=== PATIENT | male | born 1980 | race Caucasian/White ===

== ENCOUNTER 2018-02-21 10:44 | Emergency (ER) | payer SELFPAY ==
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
[2018-02-21 12:21] VITALS: BP 134/98
== END 2018-02-21 12:18 | disposition home or self-care (01) ==
LOC: ED 10:44
DX: S16.1XXA Strain of muscle, fascia and tendon at neck level, initial encounter (principal); S09.90XA Unspecified injury of head, initial encounter; I10 Essential (primary) hypertension; V89.2XXA Person injured in unspecified motor-vehicle accident, traffic, initial encounter; Y92.9 Unspecified place or not applicable
CPT/HCPCS: 70450; 72125; 99282

== ENCOUNTER 2018-03-02 19:36 | Emergency (ER) | payer OTHER ==
[2018-03-02] MEDS ORDERED: Ketorolac INJ* 30 MG/ML 1 ML VIAL IV PUSH ONE (20:15)
[2018-03-02] MEDS ORDERED: NS 0.9% 1000 ML* 1,000 ML IV ONE (20:15)
[2018-03-02] MEDS ORDERED: diPHENhydraMINE IV* 50 MG/ML 1 ml VIAL (BENADRYL) IV ONE (20:15)
[2018-03-02] MEDS ORDERED: Promethazine INJ(RESTRICTED)* 25 MG/ML 1 ML VIAL IV ONE (20:17)
[2018-03-02] MEDS ORDERED: PROCHLORPERAZINE INJ 5 MG/ML 2 ML VIAL IV ONE (21:00)
[2018-03-02 21:40] VITALS: BP 129/80
--- NOTE | 2018-03-02 22:08 | ED ---
Chau Bacon Jennifer, scribed for Estuardo Coronado MD on 03/02/18 at 2025 . Headache - HPI Summary HPI Summary: The patient is a 37 year old male who presents with migraine since 12:30 today. He reports the pain is located behind his right eye and through the back of his head and down the right side of his face. He adds that the pain is beginning to spread to the left side of his face. He reports the pain begin to worsen at 15: 45. Pt complains of visual changes and photophobia. He denies vomiting, cold symptoms, and any other pain. Pt has a history of migraines and states this is similar to previous episodes. - History Of Current Complaint Chief Complaint: EDHeadache Stated Complaint: MIGRAINE Time Seen by Provider: 03/02/18 19:54 Hx Obtained From: Patient Onset/Duration: Sudden Onset, Started hours ago - 8 hours, Still Present, Worse Since - 15:45 Initially Headache Was: Moderate Currently Pain Is: Moderate Timing: Constant Character: Pressure Location of Headache: Other: - Behind right eye through back of head and down the right side of the face, beginning to spread to the left face Aggravating Factor: Bright Lights Allevating Factors: Nothing - Allergies/Home Medications Allergies/Adverse Reactions: Allergies Allergy/AdvReac Type Severity Reaction Status Date / Time sumatriptan [From Imitrex] Allergy Palpitation Verified 03/02/18 19:50 s PMH/Surg Hx/FS Hx/Imm Hx Endocrine/Hematology History: Denies: Hx Anticoagulant Therapy, Hx Diabetes, Hx Thyroid Disease Cardiovascular History: Reports: Hx Hypertension Denies: Hx Pacemaker/ICD Respiratory History: Denies: Hx Asthma, Hx Chronic Obstructive Pulmonary Disease (COPD) History: Denies: Hx Renal Disease Neurological History: Reports: Hx Migraine Denies: Hx Dementia, Hx Seizures Psychiatric History: Denies: Hx Substance Abuse - Cancer History Cancer Type, Location and Year: N - Surgical History Surgery Procedure, Year, and Place: APPENDECTOMY 2007 Infectious Disease History: No Infectious Disease History: Denies: Hx Hepatitis, Hx Human Immunodeficiency Virus (HIV), Traveled Outside the [place] in Last 30 Days - Family History Known Family History: Negative: Hypertension, Diabetes - Social History Alcohol Use: None Substance Use Type: Reports: None Smoking Status (MU): Never Smoked Tobacco Review of Systems Negative: Fever Positive: Photophobia. Negative: Blurred Vision, Diplopia ENT: Negative Negative: Nasal Discharge Negative: Palpitations Positive: Vomiting, Nausea. Negative: Abdominal Pain Positive: Headache. Negative: Weakness, Paresthesia, Numbness, Slurred Speech All Other Systems Reviewed And Are Negative: Yes Physical Exam - Summary Physical Exam Summary: Appearance: Well appearing, no pain distress Skin: warm, dry, reflects adequate perfusion Head/face: normal, temporal arteries nontender, lobes are soft Eyes: EOMI, CHRISTIANE ENT: normal Neck: supple, non-tender Respiratory: CTA, breath sounds present Cardiovascular: RRR, pulses symmetrical Abdomen: non-tender, soft Bowel Sounds: present Musculoskeletal: normal, strength/ROM intact Neuro: normal, sensory motor intact, cranial nerves intact, A&Ox3 Triage Information Reviewed: Yes Vital Signs On Initial Exam: Initial Vitals Temp Pulse Resp BP Pulse Ox 98.2 F 88 16 146/88 99 03/02/18 19:48 03/02/18 19:48 03/02/18 19:48 03/02/18 19:48 03/02/18 19:48 Vital Signs Reviewed: Yes Diagnostics - Vital Signs Vital Signs Temp Pulse Resp BP Pulse Ox 03/02/18 19:48 98.2 F 88 16 146/88 99 - Laboratory Lab Statement: Any lab studies that have been ordered have been reviewed, and results considered in the medical decision making process. Re-Evaluation - Re-Evaluation First Eval Re-Evaluation Time: 21:06 Change: Improved Comment: Pt reports his nausea is gone and his head is improving but not completely gone. Second Eval Re-Evaluation Time: 21:27 Change: Improved Comment: Pt reports his headache is now gone. Headache Course/Dx - Course Course Of Treatment: Patient with history of frequent, recurring migraines who presents with similar symptoms. Gradual onset and no high risk features. Treated here with promethazine, Toradol, Benadryl and IV hydration with resolution. Will have him follow-up with his neurologist. - Diagnoses Differential Diagnosis/HQI/PQRI: Migraine, Sinus Headache, Temporal Arteritis, Tension Headache Provider Diagnoses: Migraine aura, persistent, intractable Discharge - Sign-Out/Discharge Documenting (check all that apply): Discharge/Admit/Transfer - Discharge Plan Condition: Improved Disposition: HOME Patient Education Materials: Migraine Headache (ED) Forms: *Work Release Referrals: Naty Mandujano MD [Medical Doctor] - Gemma Magdaleno MD [Primary Care Provider] - Additional Instructions: Stay well hydrated. Call in the morning to speak with your doctor/neurologist about other options to help control your headaches. Return if worse, fevers, repetitive vomiting, new symptoms or other concerns. Stay well-hydrated, caffeine may help. Avoid regular use of ibuprofen. - Billing Disposition and Condition Condition: IMPROVED Disposition: HOME The documentation as recorded by the Chau blas Jennifer accurately reflects the service I personally performed and the decisions made by me, Estuardo Coronado MD.
== END 2018-03-02 21:39 | disposition home or self-care (01) ==
LOC: ED 19:36
DX: G43.519 Persistent migraine aura without cerebral infarction, intractable, without status migrainosus (principal); I10 Essential (primary) hypertension; Z88.8 Allergy status to other drugs, medicaments and biological substances
CPT/HCPCS: 96374; 96375; 99282; J0780; J1200; J1885; J2550

== ENCOUNTER 2018-04-23 08:28 | Emergency (ER) | payer OTHER ==
[2018-04-23] MEDS ORDERED: EPINEPHrine AMP 1 MG/ML IM ONE (08:58)
[2018-04-23] MEDS ORDERED: methylPREDNISolone 125 MG* 2 ML VIAL IV ONE (08:58)
[2018-04-23] MEDS ORDERED: NS 0.9% 1000 ML* 1,000 ML IV ONE (08:58)
[2018-04-23] MEDS ORDERED: Famotidine IV* 10 MG/ML 2 ML (20 mg) IV SLOW PU ONE (08:59)
[2018-04-23] MEDS ORDERED: diPHENhydraMINE IV* 50 MG/ML 1 ml VIAL (BENADRYL) IV ONE (08:59)
--- NOTE | 2018-04-23 09:06 | ED ---
Allergic Reaction/Systemic - HPI Summary HPI Summary: Patient presents with reaction to Zomig which she took a little after 7:30 this morning. He reports he initially developed some throat tightness which spread into chest tightness arm heaviness and a little bit of nausea. He's had a history of allergic reaction to Imitrex in the past which resulted in slowed breathing. He has not tried anything prior to arrival. He denies history of anaphylaxis as well as asthma or sensitive skin. He does have a history of migraines and is followed with Dr. Mandujano. He reports he gets 8-10 of these a month which is why he is on preventative medication as well as rescue meds. He also admits to history of depression. Was recently switched from nortriptyline to another medication (possibly Effexor). - History of Current Complaint Chief Complaint: EDAllergicReaction Time Seen by Provider: 04/23/18 08:46 Hx Obtained From: Patient Pain Intensity: 7 - Allergies/Home Medications Allergies/Adverse Reactions: Allergies Allergy/AdvReac Type Severity Reaction Status Date / Time sumatriptan [From Imitrex] Allergy Palpitation Verified 03/16/18 15:17 s Home Medications: Home Medications Butalb/Acetamin/Caff TAB* [Fioricet TAB*] 1 tab PO Q6H PRN 04/23/18 [History Confirmed 04/23/18] HYDROcodone/ACETAMIN 5-325 MG* [[place] 5-325 TAB*] 1 tab PO Q6H PRN 04/23/18 [ History Confirmed 04/23/18] Multivitamins/Minerals TAB* [Theragran/minerals TAB*] 1 tab PO DAILY 04/23/18 [ History Confirmed 04/23/18] Nortriptyline CAP* [Pamelor CAP*] 50 mg PO BEDTIME 04/23/18 [History Confirmed 04/23/18] diPHENhydraMINE PO* [Benadryl PO 50 MG CAP*] 50 mg PO BEDTIME 04/23/18 [History Confirmed 04/23/18] PMH/Surg Hx/FS Hx/Imm Hx Previously Healthy: Yes Endocrine/Hematology History: Denies: Hx Anticoagulant Therapy, Hx Diabetes, Hx Thyroid Disease Cardiovascular History: Reports: Hx Hypertension Denies: Hx Aneurysm, Hx Cardiac Arrest, Hx Congestive Heart Failure, Hx Myocardial Infarction, Hx Pacemaker/ICD Respiratory History: Denies: Hx Asthma, Hx Chronic Obstructive Pulmonary Disease (COPD), Hx Pneumonia, Hx Pulmonary Embolism History: Denies: Hx Renal Disease Sensory History: Denies: Hx Hearing Aid Neurological History: Reports: Hx Migraine - 8-10 per month - follows w/ Dr. 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 Negative: Abdominal Pain, Vomiting, Diarrhea Positive: no symptoms reported Musculoskeletal: Negative Skin: Negative Neurological: Negative Positive: Anxious All Other Systems Reviewed And Are Negative: Yes Physical Exam Triage Information Reviewed: Yes Vital Signs On Initial Exam: Initial Vitals Temp Pulse Resp Pulse Ox 97.1 F 67 16 98 04/23/18 08:39 04/23/18 08:39 04/23/18 08:39 04/23/18 08:39 Vital Signs Reviewed: Yes Appearance: Positive: Well-Appearing - appears concerned, No Pain Distress, Well -Nourished Skin: Positive: Warm, Skin Color Reflects Adequate Perfusion, Dry Head/Face: Positive: Normal Head/Face Inspection Eyes: Positive: Normal, EOMI, Conjunctiva Clear ENT: Positive: Normal ENT inspection, Hearing grossly normal, Pharynx normal - mucosa somewhat dry Neck: Positive: Supple, Tenderness @ - anterior neck is w/ mild TTP Respiratory/Lung Sounds: Positive: Clear to Auscultation, Breath Sounds Present. Negative: Wheezes Cardiovascular: Positive: Normal, RRR Abdomen Description: Positive: Nontender, No Organomegaly, Soft Musculoskeletal: Positive: Normal, Strength/ROM Intact Neurological: Positive: Normal, Sensory/Motor Intact, Alert, Oriented to Person Place, Time, CN Intact II-III Psychiatric: Positive: Anxious Diagnostics - Vital Signs Vital Signs Temp Pulse Resp BP Pulse Ox 04/23/18 08:45 97.1 F 69 18 152/100 95 04/23/18 08:39 97.1 F 67 16 98 - Laboratory Result Diagrams: 04/23/18 09:37 04/23/18 09:03 Lab Statement: Any lab studies that have been ordered have been reviewed, and results considered in the medical decision making process. Re-Evaluation - Re-Evaluation First Eval Change: Improved - throat tightness resolved and chest tightness improving Second Eval Change: Improved - tolerating cold water well Allergic Reaction Course/Dx - Course Course Of Treatment: Pt presents w/ anaphylactic sx s/p taking zomig. He reports throat tightness, chest tightness and arm heaviness. His BP is elevated and he has no skin reaction/sx. His breathing is controlled and pulse ox consistently > 95%. His case was discussed w/ Dr. Coronado as there was debate whether this was an anaphylactic presentation vs. drug reaction w/o anaphylaxis. After checking an ECG (NSR, 67 BPM, no ST elevations, early repol) , we decided to initiated medications for anaphylaxis and pt's sx improved. His BP improved and HR was below 100 (88) at 4 hours s/p epi administration. Pt d/c' d in stable and improved condition. Advised to continue home meds and f/u w/ PCP. Educated about possible biphasic reaction - pt will monitor for danger s/ sx.He will also discuss med change with Dr. Huff as he will no longer be able to take zomig. - Diagnoses Provider Diagnoses: Drug-induced anaphylaxis Discharge - Sign-Out/Discharge Documenting (check all that apply): Discharge/Admit/Transfer - Discharge Plan Condition: Stable Disposition: HOME Prescriptions: EPINEPHrine [Epipen 2-Ruiz] 0.3 mg IM ONCE PRN #1 inj PRN Reason: Allergy Symptoms methylPREDNISolone [Medrol] 4 mg PO DAILY #1 ruiz Patient Education Materials: Anaphylaxis (ED) Forms: *Work Release Referrals: Zeenat Palmer MD [Primary Care Provider] - Additional Instructions: Complete steroid pack as directed You may also take an anti-histamine such as benadryl 50mg every 6 hours for the next 1-2 days Take pepcid 20mg daily for nausea Stay hydrated *If your symptoms return, inject your thigh with the epipen and return to the ED Follow-up with PCP as well as Dr. Mandujano. Zomig has been removed from your med list and added to your allergy list. Please update all of your other care providers. - Billing Disposition and Condition Condition: STABLE Disposition: Home
[2018-04-23 09:38] LABS: EGFR Non-African American 60.9 (>60)
[2018-04-23 09:49] LABS: Hematocrit 46 % (42-52); Hemoglobin 16.1 g/dl (14.0-18.0); Mean Corpuscular HGB Conc 35 g/dl (31-36); Mean Corpuscular Hemoglobin 29 pg (27-31); Mean Corpuscular Volume 84 fL (80-94); Mean Platelet Volume 9.2 um3 (7.4-10.4); Platelet Count 180 10^3/ul (150-450); Red Cell Distribution Width 12 % (10.5-15); White Blood Count 5.8 10^3/ul (3.5-10.8)
[2018-04-23 10:30] LABS: Monocytes % 4 % (0-7)
[2018-04-23 14:05] VITALS: BP 130/84
[2018-04-23 16:15] LABS: ABS Neutrophils 3.3 10^3/ul (1.5-7.7)
== END 2018-04-23 14:04 | disposition home or self-care (01) ==
LOC: ED 08:28
DX: T88.6XXA Anaphylactic reaction due to adverse effect of correct drug or medicament properly administered, initial encounter (principal); T39.8X5A Adverse effect of other nonopioid analgesics and antipyretics, not elsewhere classified, initial encounter; Y84.8 Other medical procedures as the cause of abnormal reaction of the patient, or of later complication, without mention of misadventure at the time of the procedure; R07.9 Chest pain, unspecified; R11.0 Nausea; Z88.8 Allergy status to other drugs, medicaments and biological substances; Z79.899 Other long term (current) drug therapy; I10 Essential (primary) hypertension; G40.909 Epilepsy, unspecified, not intractable, without status epilepticus
CPT/HCPCS: 36415; 80053; 83690; 84484; 85025; 93005; 96365; 96372; 96375; 99283; J0171; J1200; J2930

== ENCOUNTER 2019-12-29 21:40 | Emergency (ER) | payer BC ==
--- OUTSIDE RECORDS SUMMARY | 2019-12-29 21:48 | XMS REPORT | Continuity of Care Document ---
:1980 External Reference #:[id number] Author Name Dara Drummond NAnjum (transmitted by agent of provider Christiane Kumar) Address [address], [address] [place] [id number] Care Team Providers Name Role Phone Dara Drummond NP - Family Care Team Information Digital Learning Platforms Manager [phone] Zeenat Palmer MD - Internal Care Team Information Digital Learning Platforms Manager [phone] Medicine Problems Active Problems Provider Date Essential hypertension Gemma Magdaleno M.D. Onset: 06/30/2012 Migraine without aura, not refractory Naty Mandujano MD Onset: 08/04/2017 Current tear of medial cartilage AND/OR Odalys Quintero M.D. Onset: 03/12/2018 meniscus of knee Knee pain Odalys Quintero M.D. Onset: 03/12/2018 Localized, primary osteoarthritis Odalys Quintero M.D. Onset: 04/02/2018 Migraine Naty Mandujano MD Onset: 04/21/2018 Chronic intractable migraine without aura Aly Tang M.D. Onset: 10/26 Social History Type Date Description Comments Sex Unknown Tobacco Use Start: Unknown Never Smoked Cigarettes Smoking Status Reviewed: 12/13/19 Never Smoked Cigarettes ETOH Use Rarely consumes alcohol Tobacco Use Start: Unknown Patient has never smoked Recreational Drug Use Denies Drug Use Enjoy Exercising Enjoys exercising Exercise Type/Frequency Exercises sporadically Allergies, Adverse Reactions, Alerts Active Allergies Reaction Severity Comments Date Sumatriptan Bradycardia, near 04/22/2017 syncope Zomig Chest pressure throat Severe 04/26/2018 swelling Inactive Allergies NKDA 06/30/2012 Medications Active Medications SIG Qnty Indications Ordering Provider Date Aimovig inject once a 1ml G43.719 Aly Tang, 10/26/2018 70mg/ml month, sq dx M.D. Solution Auto-Inject code: g43.719 Ondansetron 1 up to three 18tabs Dusty Allen, 03/10/2018 4mg times a day as N.P. Tablets Dispers needed for nausea associated with migraine Hydrocodone-Acetamin one tablet by 14tabs Dara Hoda, 06/22/2017 ophen mouth every 6 N.P. 5-325mg Tablets hours as needed for pain Blood Pressure Kit check blood 1units Dara Drummond, 01/14/2016 pressure daily N.P. Kit Butalbital/Acetamino take 1-2 tablets 60tabs G43.109 Dara Drummond, 2013 phen/Caffeine by mouth every 6 N.P. hours if needed 50-325-40mg Tablets maximum daily dose of 6 Mens Multivitamin 1 by mouth every Unknown Plus day Tablets Eye Drops as needed Unknown 0.012-0.2% Solution Immunizations CPT Code Status Date Vaccine Reaction Lot # [id number] Given 11/14/2019 Influenza Virus Vaccine, shot tolerated well, [id number] Quadrivalent, Split, no immediate reaction Preservative Free 94803 Given 01/31/2019 Tetanus And Diptheria No immediate [id number] (Td) For Adult Use reaction... Preservative Free 33784 Given 08/23/2014 Influenza Virus Vaccine, [id number] Quadrivalent, Split, Preservative Free 35911 Given 07/14/2012 Influenza Virus 3Yrs & Over 02181 Given 07/15/2009 Tdap - [id number] Tetanus/Diptheria/Acellul ar Pertussis Vital Signs Date Vital Result Comment 12/13/2019 4:01pm Height 71.5 inches 5'11.50" Weight 218.00 lb Heart Rate 74 /min BP Systolic Sitting 138 mmHg BP Diastolic Sitting 88 mmHg Body Temperature 98.0 F O2 % BldC Oximetry 94 % BMI (Body Mass Index) 30.0 kg/m2 11/14/2019 2:52pm Height 71.5 inches 5'11.50" Weight 205.00 lb Heart Rate 66 /min BP Systolic 118 mmHg BP Diastolic 90 mmHg BMI (Body Mass Index) 28.2 kg/m2 Results Description No Information Available Procedures Description No Information Available Medical Devices Description No Information Available Encounters Type Date Location Provider Dx Diagnosis Office Visit 11/14/2019 [facility] Dusty Allen, G43.909 Migraine, unsp, 3:00p [facility] N.P. not intractable, without status migrainosus Assessments Date Code Description Provider 12/13/2019 M54.5 Low back pain Dara Drummond N.PJean Marie 11/14/2019 Z23 Encounter for immunization Nurse Visit A 11/14/2019 G43.909 Migraine, unspecified, not intractable, Dusty Allen, N.PJean Marie without status migra Plan of Treatment Future Appointment(s):05/14/2020 3:45 pm - Aly Tang M.D. at [facility]02/03/2020 8:40 am - Dara Drummond NAnjum at [facility] - [facility]12/13/2019 - Dara Drummond NAnjumM54.5 Low back painNew Labs:Urinalysis Profile, Ordered: 12/13/19Urine Culture And Sensitivities, Ordered: 12/13/19Comments:To be sure your symptoms are not related to your kidneys or infection I have ordered a urine culture. The office will contact you with your results.You may find applying heat or ice helpful. Taking Acetaminophen may help the discomfort. Functional Status Description No Information Available Mental Status Description No Information Available Referrals Description No Information Available
--- OUTSIDE RECORDS SUMMARY | 2019-12-29 21:48 | XMS REPORT | Continuity of Care Document ---
:1980 External Reference #:[id number] Author Name Dusty Allen N.P. (transmitted by agent of provider Renetta Andres) Address [address], [address] [place] [id number] Care Team Providers Name Role Phone Dara Drummond NP - Family Care Team Information Category Specialist [phone] Zeenat Palmer MD - Internal Care Team Information Category Specialist [phone] Medicine Problems Active Problems Provider Date Essential [...] Unknown Never Smoked Cigarettes Smoking Status Reviewed: 11/14/19 Never Smoked Cigarettes ETOH Use Rarely consumes [...] associated with migraine Hydrocodone-Acetamin one tablet by 28tabs Dara Hoda, 06/22/2017 ophen mouth every 6 N.P. 5-325mg Tablets hours as needed for pain Blood Pressure Kit check blood 1units Dara Hoda, 01/14/2016 pressure daily N.P. Kit Butalbital/Acetamino take 1-2 tablets 60tabs G43.109 Dara Hoda, 2013 phen/Caffeine by mouth every 6 N.P. hours if needed 50-325-40mg Tablets maximum daily dose of 6 Mens Multivitamin 1 by mouth every Unknown Plus day Tablets Eye Drops as needed Unknown 0.012-0.2% Solution History Medications Ambien one by mouth at 14tabs Dara Hoda, N.P. 05/25/2019 - 5mg bedtime as needed 11/13/2019 Tablets for sleep Immunizations CPT Code Status Date Vaccine Reaction Lot # [id number] Given 11/14/2019 Influenza Virus Vaccine, shot tolerated well, [id number] Quadrivalent, Split, no immediate reaction Preservative Free 36711 Given 01/31/2019 Tetanus And Diptheria No immediate A114B (Td) For Adult Use reaction... Preservative Free 83164 Given 08/23/2014 Influenza Virus Vaccine, [id number] Quadrivalent, Split, Preservative Free 83050 Given 07/14/2012 Influenza Virus 3Yrs & Over 60491 Given 07/15/2009 Tdap - [id number] Tetanus/Diptheria/Acellul ar Pertussis Vital Signs Date Vital Result Comment 11/14/2019 2:52pm Height 71.5 inches 5'11.50" Weight 205.00 lb Heart Rate 66 /min BP Systolic 118 mmHg BP Diastolic 90 mmHg BMI (Body Mass Index) 28.2 kg/m2 05/30/2019 3:57pm Height 71.5 inches 5'11.50" Weight 206.00 lb Heart Rate 66 /min BP Systolic 138 mmHg BP Diastolic 98 mmHg BMI (Body Mass Index) 28.3 kg/m2 Results Description No Information Available Procedures Description No Information Available Medical Devices Description No Information Available Encounters Type Date Location Provider Dx Diagnosis Office Visit 05/30/2019 [facility] Aly Tang, G43.719 Chronic migraine 4:00p [facility] MClarence w/o aura, intractable, w/o stat migr Assessments Date Code Description Provider 11/14/2019 G43.909 Migraine, unspecified, not intractable, Dusty Allen N.PJean Marie without status migra 05/30/2019 G43.719 Chronic migraine without aura, intractable, Aly Tang M.D. without status m Plan of Treatment Future Appointment(s):05/14/2020 3:45 pm - Aly Tang M.D. at [facility]02/03/2020 8:40 am - Dara Drummond NAnjum at [facility] - [facility]11/14/2019 - Dusty Allen N.PJean MarieG43.909 Migraine, unspecified, not intractable, without status migraFollow up:6 months Functional Status Description No Information Available Mental Status Description No Information Available Referrals Description No Information Available
[2019-12-29 21:58] LABS: ABS Basophils 0.1 10^3/ul (0-0.2); ABS Eosinophils 0.2 10^3/ul (0-0.6); ABS Monocytes 1.1 10^3/ul (0-0.8); Eosinophil % 2.8 %; Hematocrit 46 % (42-52); Hemoglobin 16.6 g/dL (14.0-18.0); Lymphocyte % 11.5 %; Mean Corpuscular HGB Conc 36 g/dL (31-36); Mean Corpuscular Hemoglobin 30 pg (27-31); Mean Corpuscular Volume 83 fL (80-94); Platelet Count 174 10^3/uL (150-450); Red Blood Count 5.55 10^6 /uL (4.18-5.48); Red Cell Distribution Width 12 % (10-15); White Blood Count 8.3 10^3/uL (3.5-10.8)
[2019-12-29 22:15] LABS: Albumin 4.4 g/dL (3.2-5.2); Albumin/Globulin Ratio 1.6 (1-3); BUN/Creatinine Ratio 10.1 (8-20); Calcium 9.1 mg/dL (8.6-10.3); EGFR African American 74.3 (>60); EGFR Non-African American 61.4 (>60); Globulin 2.8 g/dL (2-4); Total Bilirubin 0.6 mg/dL (0.2-1.0); Total Protein 7.2 g/dL (6.4-8.9)
--- NOTE | 2019-12-29 22:28 | ED ---
HPI Chest Pain - HPI Summary HPI Summary: 39-year-old male with a significant past medical history of migraines, hypertension, angina of unknown cause presents to the emergency department today complaining of 9 out of 10 episodic (2) sharp left anterior chest pain which lasted approximately 10 minutes per episode. Patient states the first episode of chest pain began at approximately 12:00 this afternoon where he was lightly walking at work and was associated with lightheadedness but was not associated with diaphoresis, jaw pain, arm pain, abdominal pain. Patient states his second episode occurred at home while sitting on the couch. Both times this pain spontaneously resolved with rest. Patient states he also has an 8 out of 10 headache which is consistent with his typical migraine. Patient endorses a family history of "heart problems". Patient denies high cholesterol , diabetes, smoking. Patient states he's also been experiencing fever, cough, nasal congestion, muscle aches for 1-2 days. Patient took ibuprofen at 1930 this evening for his fever. Patient otherwise feels well and denies abdominal pain, shortness of breath, nausea, vomiting, diarrhea. Surgical history noncontributory. Patient's last echocardiogram and stress test was "a few years ago". - History of Current Complaint Chief Complaint: EDChestPainROMI Time Seen by Provider: 12/29/19 22:06 Hx Obtained From: Patient Onset/Duration: Started Hours Ago Timing: Intermittent, Lasting Minutes Initial Severity: Severe Current Severity: Severe Pain Intensity: 8 Pain Scale Used: 0-10 Numeric Chest Pain Location: Left Anterior Chest Pain Radiates: No Character: Cough, Non-Productive Associated Signs and Symptoms: Positive: Lightheadedness, Cough, Nonproductive Cough, URI - Allergy/Home Medications Allergies/Adverse Reactions: Allergies Allergy/AdvReac Type Severity Reaction Status Date / Time sumatriptan [From Imitrex] Allergy Palpitation Verified 03/16/18 15:17 s Home Medications: Home Medications Butalb/Acetamin/Caff TAB* [Fioricet TAB*] 1 tab PO Q6H PRN 04/23/18 [History Confirmed 04/23/18] EPINEPHrine [Epipen 2-Ruiz] 0.3 mg IM ONCE PRN #1 inj 04/23/18 [Rx] HYDROcodone/ACETAMIN 5-325 MG* [[place] 5-325 TAB*] 1 tab PO Q6H PRN 04/23/18 [ History Confirmed 04/23/18] Multivitamins/Minerals TAB* [Theragran/minerals TAB*] 1 tab PO DAILY 04/23/18 [ History Confirmed 04/23/18] Nortriptyline CAP* [Pamelor CAP*] 50 mg PO BEDTIME 04/23/18 [History Confirmed 04/23/18] diPHENhydraMINE PO* [Benadryl PO 50 MG CAP*] 50 mg PO BEDTIME 04/23/18 [History Confirmed 04/23/18] methylPREDNISolone [Medrol] 4 mg PO DAILY #1 ruiz 04/23/18 [Rx] PMH/Surg Hx/FS Hx/Imm Hx Endocrine/Hematology History: Denies: Hx Anticoagulant Therapy, Hx Diabetes, Hx Thyroid Disease Cardiovascular History: Reports: Hx Hypertension Denies: Hx Aneurysm, Hx Cardiac Arrest, Hx Congestive Heart Failure, Hx Myocardial Infarction, Hx Pacemaker/ICD Respiratory History: Denies: Hx Asthma, Hx Chronic Obstructive Pulmonary Disease (COPD), Hx Pneumonia, Hx Pulmonary Embolism History: Denies: Hx Renal Disease Sensory History: Denies: Hx Hearing Aid Neurological History: Reports: Hx Migraine - 8-10 per month - follows w/ Dr. Huff Denies: Hx Dementia, Hx Seizures Psychiatric History: Reports: Hx Anxiety, Hx Depression - takes medication Denies: Hx Panic Disorder, Hx Substance Abuse - Cancer History Cancer Type, Location and Year: N - Surgical History Surgery Procedure, Year, and Place: APPENDECTOMY 2006 Infectious Disease History: No Infectious Disease History: Denies: Hx Hepatitis, Hx Human Immunodeficiency Virus (HIV), Traveled Outside the [place] in Last 30 Days - Family History Known Family History: Positive: None - noncontibutory, Diabetes Negative: Hypertension - Social History Alcohol Use: Rare Hx Substance Use: No Substance Use Type: Reports: None Hx Tobacco Use: No Smoking Status (MU): Never Smoked Tobacco Review of Systems Positive: Fever, Fatigue Eyes: Negative Positive: Nasal Discharge. Negative: Epistaxis, Dental Pain, Sore Throat, Ear Ache Positive: Chest Pain Positive: Cough. Negative: Shortness Of Breath Gastrointestinal: Negative Genitourinary: Negative Positive: Myalgia Skin: Negative Positive: Headache Psychological: Normal All Other Systems Reviewed And Are Negative: Yes Physical Exam Triage Information Reviewed: Yes Vital Signs On Initial Exam: Initial Vitals Temp Pulse Resp BP Pulse Ox 99.5 F 81 20 152/89 97 12/29/19 21:48 12/29/19 21:48 12/29/19 21:48 12/29/19 21:48 12/29/19 21:48 Vital Signs Reviewed: Yes Appearance: Positive: Well-Appearing, No Pain Distress, Well-Nourished Skin: Positive: Warm, Skin Color Reflects Adequate Perfusion Eyes: Positive: EOMI, CHRISTIANE, Conjunctiva Clear ENT: Positive: Hearing grossly normal Respiratory/Lung Sounds: Positive: Clear to Auscultation, Breath Sounds Present Cardiovascular: Positive: RRR, S1, S2 Abdomen Description: Positive: Nontender, Soft Bowel Sounds: Positive: Present Musculoskeletal: Positive: Strength/ROM Intact Neurological: Positive: Sensory/Motor Intact, Alert, Oriented to Person Place, Time, Normal Gait, Facial Symmetry, Speech Normal Psychiatric: Positive: Normal, Affect/Mood Appropriate AVPU Assessment: Alert Procedures - Sedation Patient Received Moderate/Deep Sedation with Procedure: No Diagnostics - Vital Signs Vital Signs Temp Pulse Resp BP Pulse Ox 12/29/19 22:07 78 15 167/95 89 12/29/19 22:05 82 19 89 12/29/19 21:48 99.5 F 81 20 152/89 97 - Laboratory Lab Results: Lab Results 12/29/19 12/29/19 12/29/19 Range/Units 21:48 21:48 21:48 WBC 8.3 (3.5-10.8) 10^3/uL RBC 5.55 H (4.18-5.48) 10^6 /uL Hgb 16.6 (14.0-18.0) g/dL Hct 46 (42-52) % MCV 83 (80-94) fL MCH 30 (27-31) pg MCHC 36 (31-36) g/dL RDW 12 (10-15) % Plt Count 174 (150-450) 10^3/uL MPV 9.0 (7.4-10.4) fL Neut % (Auto) 71.7 % Lymph % (Auto) 11.5 % Bledsoe % (Auto) 13.0 % Eos % (Auto) 2.8 % Baso % (Auto) 1.0 % Absolute Neuts (auto) 6.0 (1.5-7.7) 10^3/ul Absolute Lymphs (auto) 1.0 (1.0-4.8) 10^3/ul Absolute Monos (auto) 1.1 H (0-0.8) 10^3/ul Absolute Eos (auto) 0.2 (0-0.6) 10^3/ul Absolute Basos (auto) 0.1 (0-0.2) 10^3/ul Absolute Nucleated RBC 0.0 10^3/ul Nucleated RBC % 0.0 INR (Anticoag Therapy) 1.00 (0.82-1.09) Sodium 136 (135-145) mmol/L Potassium Pending Chloride 104 (101-111) mmol/L Carbon Dioxide 24 (22-32) mmol/L Anion Gap Pending BUN 13 (6-24) mg/dL Creatinine 1.29 H (0.67-1.17) mg/dL Est GFR ( Amer) 74.3 (>60) Est GFR (Non-Af Amer) 61.4 (>60) BUN/Creatinine Ratio 10.1 (8-20) Glucose 106 H (70-100) mg/dL Calcium 9.1 (8.6-10.3) mg/dL Total Bilirubin 0.60 (0.2-1.0) mg/dL AST Pending ALT 51 (7-52) U/L Alkaline Phosphatase 70 (34-104) U/L Troponin I 0.00 (<0.03) ng/mL Total Protein 7.2 (6.4-8.9) g/dL Albumin 4.4 (3.2-5.2) g/dL Globulin 2.8 (2-4) g/dL Albumin/Globulin Ratio 1.6 (1-3) Result Diagrams: 12/29/19 21:48 12/29/19 21:48 Lab Statement: Any lab studies that have been ordered have been reviewed, and results considered in the medical decision making process. Chest Pain Course/Dx - Course Course Of Treatment: Patient was evaluated in the emergency department for chest pain. Vitals noted and stable. EKG shows no evidence of STEMI. Normal sinus rhythm and rate of 86 beats per minute. Normal axis. Normal DE and QTc intervals. There are T-wave inversions in lead 3. These findings are unchanged when comparing to prior EKG done on 04/23/2018. Labs returned showing no concerning findings including no evidence of leukocytosis, anemia, electrolyte abnormality. Initial troponin 0.00. His troponin was drawn approximately 8 hours after patient has been symptomatic. Serial troponins were deemed unnecessary due to this. Heart score 2. It appears patient was not suffering from acute life-threatening pathology and was discharged with outpatient follow-up. Patient was not hypoxic at time of discharge and maintain an oxygen saturation above 96% on room air. - Chest Pain Differential Diagnosis/HQI/PQRI: Acute [place], ACS, Angina, Chest Wall, Lower Respiratory Infection - Diagnoses Provider Diagnoses: Atypical chest pain Discharge ED - Sign-Out/Discharge Documenting (check all that apply): Patient Departure - Discharge Plan Condition: Stable Disposition: HOME Patient Education Materials: Chest Pain (ED) Referrals: Zeenat Palmer MD [Primary Care Provider] - 3 Days Additional Instructions: You were seen in the emergency department today due to chest pain. An EKG, chest x-ray, laboratory studies were done which showed no evidence of acute pathology requiring intervention at this time. Although you had a negative workup today in the emergency department I cannot be certain your symptoms are not due to cardiac origin so please follow-up with your primary care provider or personal support worker in 3-4 days for further evaluation and management. Please return to the emergency department immediately if you develop any new or worsening symptoms. - Billing Disposition and Condition Condition: STABLE Disposition: Home - Attestation Statements Provider Attestation: I was available for consult. This patient was seen by the KIESHA. The patient was not presented to, seen by, or examined by me. Cy Sheridan MD
[2019-12-29 22:32] LABS: Potassium 3.9 mmol/L (3.5-5.0)
[2019-12-29 23:12] LABS: Influenza A Molecular Negative (Negative); Influenza B Molecular Negative (Negative)
[2019-12-29 23:29] VITALS: BP 134/86
== END 2019-12-29 23:28 | disposition home or self-care (01) ==
LOC: ED 21:40
DX: R07.89 Other chest pain (principal); R05 Cough; R51 Headache; F41.9 Anxiety disorder, unspecified; F32.9 Major depressive disorder, single episode, unspecified; I10 Essential (primary) hypertension
CPT/HCPCS: 36415; 71046; 80053; 84484; 85025; 85610; 93005; 99283